=== PATIENT | male | born 2000 | race Caucasian/White ===

== ENCOUNTER 2021-02-03 18:13 | Emergency (ER) | payer OTHER, SELFPAY ==
[2021-02-03 18:20] VITALS: BP 144/95; PULSE 98; RESP 20; TEMP 36.2; O2SAT 99
--- NOTE | 2021-02-03 18:31 | ED.URI ---
HPI - URI/Sore Throat General Chief Complaint: Upper Respiratory Infection Stated Complaint: ear pain congestion fatigue Time Seen by Provider: 02/03/21 18:31 Source: patient and RN notes reviewed History of Present Illness HPI Narrative: Patient is a 21-year-old male who presents the urgent care with complaints of body aches, fatigue, cough and sinus drainage. Patient states that it started on Monday and he has not taken anything [id number] for his symptoms. Patient states he was also nauseated and vomited prior to his arrival. Denies of any abdominal pain. Denies of any known exposure to strep, flu or Covid. Patient denies of any known fevers. No other acute complaints. No acute distress noted. Patient aware of the plan of care. Some parts of this dictation were generated by voice recognition software and may contain typographical and/or grammatical inaccuracies. Related Data Allergies Allergy/AdvReac Type Severity Reaction Status Date / Time Cephalosporins Allergy Unknown Verified 02/03/21 18:46 Sulfa (Sulfonamide Allergy Unknown Verified 02/03/21 18:46 Antibiotics) sulfamethoxazole Allergy Unknown Verified 02/03/21 18:46 [From ] trimethoprim [From ] Allergy Unknown Verified 02/03/21 18:46 Review of Systems Review of Systems: Narrative: CONSTITUTIONAL: Denies fever, chills, or sweats. Reports of fatigue EYES: Denies visual changes, redness, or discharge. ENT: Reports of sinus drainage, intermittent otalgia CARDIOVASCULAR: Denies chest pain, palpitations, or edema. RESPIRATORY: Reports of harsh cough without dyspnea GASTROINTESTINAL: Reports of 2 episodes of vomiting and nausea prior to arrival without abdominal pain or diarrhea GENITOURINARY: Denies dysuria or hematuria. SKIN: Denies rash or itching. MUSCULOSKELETAL: Denies back pain, joint pain. Reports of body aches NEUROLOGIC: Denies headache, numbness, or weakness. All other systems reviewed are negative, except as documented in HPI. PMFSH Social History Social History Gender identity (if verbalized by the patient): Male Comments At the time of my signature, I reviewed and agree with the nursing past medical, surgical, social, and family history. There is no relevant family history pertinent to the patient complaint. Exam Narrative: Exam Narrative: GENERAL: This is a well-nourished, well-developed patient, in no apparent distress. HEAD: normocephalic, atraumatic. EYES: PERRL. Sclera clear/white. Vision is grossly intact. EARS: External ears normal, auditory canals clear and without drainage, TMs normal without perforation. Hearing grossly intact. NOSE: External nose normal with no obvious nasal discharge, nares without redness, clear rhinorrhea. THROAT: Mucous membranes moist, moderate erythema to the posterior oropharynx with moderate postnasal drainage. Mild bilateral tonsillar edema and erythema without exudate NECK: Neck supple CARDIOVASCULAR: Regular rate and rhythm without murmurs, gallops, or rubs. RESPIRATORY: Clear to auscultation. Breath sounds equal bilaterally. No wheezes, rales, or rhonchi. GASTROINTESTINAL: Abdomen soft, non-tender, nondistended. Bowel sounds are active. SKIN: warm, intact with no suspicious lesions or rash, good texture and turgor. NEURO: awake, alert, and oriented to person, place and time. There were no obvious focal neurologic abnormalities. EXTREMITIES: No clubbing, cyanosis, or edema. Course Vital Signs Vital signs: Vital Signs Temperature 97.2 F L 02/03/21 18:20 Pulse Rate 98 02/03/21 18:20 Respiratory Rate 20 02/03/21 18:20 Blood Pressure 144/95 H 02/03/21 18:20 Pulse Oximetry 99 02/03/21 18:20 Temperature 97.2 F L 02/03/21 18:20 Pulse Rate 98 02/03/21 18:20 Respiratory Rate 20 02/03/21 18:20 Blood Pressure 144/95 H 02/03/21 18:20 Pulse Oximetry 99 02/03/21 18:20 Reviewed-patient is informed that they may have pre-hypertension or hypertension based o
== END 2021-02-03 18:54 | disposition home or self-care (01) ==
PROVIDERS: Emergency Provider Nurse Practitioner Family
DX: J02.0 Streptococcal pharyngitis (principal)
CPT/HCPCS: 87880; 99213; G0463

== ENCOUNTER 2023-01-03 15:28 | Emergency (ER) | payer OTHER, SELFPAY ==
[2023-01-03 15:34] VITALS: BP 132/74; PULSE 99; RESP 20; TEMP 37.2; O2SAT 99
--- NOTE | 2023-01-03 15:52 | ED.NAVMDI ---
HPI - Nausea/Vomiting/Diarrhea General Chief complaint: Nausea/Vomiting/Diarrhea Stated complaint: nausea/headache/diarrhea Time Seen by Provider: 01/03/23 15:54 Source: patient, RN notes reviewed and old records reviewed Mode of arrival: ambulatory Limitations: no limitations History of Present Illness HPI Narrative: 22-year-old male presents to [facility] care with complaints of symptoms starting 15 hours ago which includes 3 episodes of vomiting and 3 episodes of diarrhea, also having headache pain. Patient reports that he took Tylenol for his headache without relief. Patient verbalizes no abdominal pain or pressure reports that he ate some food and drank some water about 1 hour ago and has not thrown up since eating. Patient reports no known ill contacts, states that no one else at home is ill with same symptoms. MD elicited complaint: nausea, vomiting and diarrhea Onset (ago): hour(s) (15) Description of vomiting: food contents Description of diarrhea: watery Associated nausea: Yes Associated abdominal pain: No Pain scale (0-10): 2 Treatment prior to arrival: other (Tylenol) Related Data Allergies Allergy/AdvReac Type Severity Reaction Status Date / Time Cephalosporins Allergy Unknown Verified 02/03/21 18:46 Sulfa (Sulfonamide Allergy Unknown Verified 02/03/21 18:46 Antibiotics) sulfamethoxazole Allergy Unknown Verified 02/03/21 18:46 [From ] trimethoprim [From ] Allergy Unknown Verified 02/03/21 18:46 Review of Systems Review of Systems: CONSTITUTIONAL: Denies fever, chills, or sweats. EYES: Denies visual changes, redness, or discharge. ENT: Denies rhinorrhea, congestion, sore throat, or otalgia. CARDIOVASCULAR: Denies chest pain, palpitations, or edema. RESPIRATORY: Denies cough or dyspnea. GASTROINTESTINAL: Denies abdominal pain, positive for nausea, vomiting, or diarrhea. GENITOURINARY: Denies dysuria or hematuria. SKIN: Denies rash or itching. MUSCULOSKELETAL: Denies back pain, joint pain, or myalgia. NEUROLOGIC: Reports headache, denies any numbness, or weakness. PSYCHIATRIC: Denies anxiety or depression. All systems reviewed & are unremarkable except as noted in HPI and below PMFSH Social History Social History Gender identity (if verbalized by the patient): Male Comments At time of signature, agree with nursing past medical, surgical, social and family history. There is no relevant family history pertinent to the presenting complaint Exam Narrative: GENERAL: Well-appearing, well-nourished, and in no acute distress. HEAD: Normocephalic, atraumatic. EYES: PERRLA and EOMI. ENT: Nares clear, no rhinorrhea or epistaxis. Mucous membranes moist.TM's normal with good light reflex, throat pink with no lesions or swelling noted NECK: Supple.no lymphadenopathy CHEST: Clear to auscultation. No respiratory distress.SAO2 99% on room air HEART: Regular rate and rhythm. No murmur heard. Normal peripheral pulses. ABDOMEN: Soft, nontender, no McBurney point tenderness,nondistended, normal active bowel sounds.reports diarrhea and vomiting EXTREMITIES: Normal range of motion. No edema. SKIN: Warm, dry, no rash. NEURO: No focal deficits. Alert and oriented x3. Course Course Emergency Course: Patient is aware of diagnosis, understands and agrees to treatment plan.? Anticipatory guidance given.? Patient agrees to follow-up as directed and is aware of reasons to seek care at the emergency department. Portions of this record may have been created with voice recognition software Level of Care: Express Care Visit Vital Signs Vital signs: Vital Signs Temperature 37.2 C 01/03/23 15:34 Pulse Rate 99 01/03/23 15:34 Respiratory Rate 20 01/03/23 15:34 Blood Pressure 132/74 01/03/23 15:34 Pulse Oximetry 99 01/03/23 15:34 Oxygen Delivery Room Air 01/03/23 15:34 Temperature 37.2 C 01/03/23 15:34 Pulse Rate 99 01/03/23 15:34 Respiratory Rate 20 01/03/23 15:34 Blood Pressure 13
== END 2023-01-03 16:29 | disposition home or self-care (01) ==
PROVIDERS: Emergency Provider Registered Nurse
DX: K52.9 Noninfective gastroenteritis and colitis, unspecified (principal)
CPT/HCPCS: 87081; 87804; 87880; 99213; G0463